=== PATIENT | male | born 1955 | race Caucasian/White ===

== ENCOUNTER 2017-12-23 11:20 | Observation (INO) | payer BC ==
[2017-12-23 12:30] LABS: Absolute Lymphocytes (CBC) 1.1 K/uL (0.7-4.9); Absolute Monocytes 0.7 K/uL (0.1-1.3); Absolute Neutrophil 2.9 K/uL (1.8-8.0); Basophils % 0.9 % (0-1.3); Eosinophils % 3.3 % (0-4.4); Hematocrit 44.5 % (39.6-49.0); MCH 30.1 pg (27.0-35.0); MCV 88.8 fL (80-100); MPV 10.4 fL (7.6-11.3); Monocytes % 14.7 % (3.3-12.3); RBC Red Blood Cell Count 5.01 M/uL (4.33-5.43)
--- NOTE | 2017-12-23 12:33 | RAD REPORT ---
EXAM DESCRIPTION: RAD - Chest Single View - 12/23/2017 12:04 pm CLINICAL HISTORY: Chest pain, sepsis COMPARISON: 04/06/2017 FINDINGS: Portable technique limits examination quality. The lungs are grossly clear. The heart is normal in size. No displaced fractures.Sternotomy wires pre sent. IMPRESSION: No acute intrathoracic process suspected.
--- NOTE | 2017-12-23 12:35 | ER ---
Nurse's Notes [facility] Name: Sajan Guillory Age: 62 yrs Sex: Male : 1955 Arrival Date: 12/23/2017 Time: 11:21 Bed 13 Private MD: Diagnosis: Other chest pain;Essential (primary) hypertension;Hypomagnesemia Presentation: 12/23 11:29 Transition of care: patient was not received from another setting of care. Onset of la1 symptoms was December 23, 2017. Initial Sepsis Screen: Does the patient meet any 2 criteria? No. Patient's initial sepsis screen is negative. Does the patient have a suspected source of infection? No. Patient's initial sepsis screen is negative. Care prior to arrival: None. 11:29 Method Of Arrival: Ambulatory la1 11:30 Presenting complaint: Patient states: I can tell that my BP has been running high for la1 the last few days and I have been having intermittent chest pressure and a weird feeling in my throat as well as numbness and pain in my left arm. 11:30 Acuity: CHRISTOPH 2 la1 Historical: - Allergies: 11:29 No Known Allergies; la1 - PMHx: 11:29 CAD; hemochromatosis; Hypertension; la1 - PSHx: 11:29 CABG; Knee surgery; la1 - Immunization history:: Adult Immunizations up to date. - Social history:: Smoking status: unknown. - Family history:: not pertinent. Screenin:00 Abuse screen: Denies threats or abuse. Denies injuries from another. Nutritional ph screening: No deficits noted. Tuberculosis screening: No symptoms or risk factors identified. Fall Risk None identified. Assessment: 11:45 General: Appears in no apparent distress. comfortable, well groomed, Behavior is calm, ph cooperative, appropriate for age, Denies fever, feeling ill. Pain: Complains of pain in chest Pain radiates to left jaw and left arm Pain began 1 week ago. Neuro: Level of Consciousness is awake, alert, obeys commands, Oriented to person, place, time, situation. Cardiovascular: Reports chest pain, shortness of breath, Denies diaphoresis, nausea, vomiting, Capillary refill < 3 seconds Rhythm is regular. Respiratory: Airway is patent Respiratory effort is even, unlabored, Respiratory pattern is regular, symmetrical. Derm: Skin is intact, is healthy with good turgor, Skin is pink, warm \\T\\ dry. Musculoskeletal: Circulation, motion, and sensation intact. Range of motion: intact in all extremities. 13:00 Reassessment: Patient appears in no apparent distress at this time. Patient and/or ph family updated on plan of care and expected duration. Pain level reassessed. Patient is alert, oriented x 3, equal unlabored respirations, skin warm/dry/pink. Pt denies pain at this time, awaiting lab results, VSS. 14:00 Reassessment: Patient appears in no apparent distress at this time. No changes from ph previously documented assessment. Patient and/or family updated on plan of care and expected duration. Pain level reassessed. Pt c/o "dull" headache, ERP notified, see NOV. 15:05 Reassessment: Patient appears in no apparent distress at this time. Patient and/or ph family updated on plan of care and expected duration. Pain level reassessed. Patient is alert, oriented x 3, equal unlabored respirations, skin warm/dry/pink. 16:10 Reassessment: Patient appears in no apparent distress at this time. Patient and/or ph family updated on plan of care and expected duration. Pain level reassessed. Patient is alert, oriented x 3, equal unlabored respirations, skin warm/dry/pink. Report called to PETE Watts, preparing pt to be taken to 2nd floor. Vital Signs: 11:31 BP 135 / 86; Pulse 88; Resp 16; Temp 98.2(TE); Pulse Ox 97% on R/A; Weight 111.13 kg; la1 Height 6 ft. 0 in. (182.88 cm); 13:00 BP 155 / 68; Pulse 60; Resp 18; Pulse Ox 96% on R/A; ph 14:00 BP 109 / 78; Pulse 66; Resp 18; Pulse Ox 96% ; ph 15:01 BP 134 / 82; Pulse 68; Resp 18; Temp 97.8; Pulse Ox 97% on R/A; ph 16:00 BP 118 / 78; Pulse 64; Resp 18; Temp 97.8; Pulse Ox 96% on R/A; ph 11:31 Body Mass Index 33.23 (111.13 kg, 182.88 cm) la1 ED Course: 11:21 Patient arrived in ED. as 11:29 Arm band placed on left wrist. la1 11:31 Triage completed. la1 11:32 Blake Kumar MD is Attending Physician. sugar 12:00 Patient has correct armband on for positive identification. Bed in low position. Call ph light in reach. Side rails up X 1. monitoring and evaluation advisor on. Pulse ox on. NIBP on. 12:02 X-ray completed. Portable x-ray completed in exam room. Patient tolerated procedure kp1 well. 12:05 XRAY Chest (1 view) In Process Unspecified. EDMS 12:11 Initial lab(s) drawn, by me, sent to lab. EKG done, by ED staff, reviewed by Blake Kumar MD. Inserted saline lock: 20 gauge in right antecubital area, using aseptic technique. Blood collected. 12:34 Billie Fernandez MD is Hospitalizing Provider. [facility] 12:46 Shanthi Negron RN is Primary Nurse. ph 16:00 No provider procedures requiring assistance completed. Patient admitted, IV remains in ph place. Patient maintains SpO2 saturation greater than 95% on room air. Administered Medications: 13:00 Drug: NS 0.9% 1000 ml Route: IV; Rate: 125 ml/hr; Site: right antecubital; ph 13:00 Drug: Aspirin 162 mg Route: PO; ph 14:00 Follow up: Response: No adverse reaction ph 13:05 Drug: Lovenox 1 mg/kg Route: Sub-Q; Site: right lower abdomen; ph 14:00 Follow up: Response: No adverse reaction ph 14:40 Drug: Tylenol 650 mg Route: PO; ph 15:30 Follow up: Response: No adverse reaction; Pain is decreased ph 14:45 Drug: Magnesium Sulfate 1 grams Route: IVPB; Infused Over: 1 hrs; Site: right ph antecubital; 16:00 Follow up: Response: No adverse reaction; IV Status: Completed infusion ph 16:00 Follow up: Response: No adverse reaction; IV Status: Infusion continued upon admission ph 19:34 Not Given (Hemodynamic Parameters): Lopressor (metoprolol TARTRATE) 50 mg PO once ph Outcome: 12:35 Decision to Hospitalize by Provider. sugar 16:10 Admitted to Tele accompanied by tech, via wheelchair, with chart. ph 16:10 Condition: good 16:10 Instructed on the need for admit. 16:23 Patient left the ED. ph Signatures: Dispatcher [employer] EDMS Aron Basilio jb1 Blake Kumar MD MD cha Martinez, Amelia as Attema, Lee, RN RN la1 Shanthi Negron RN RN ph Patti Enamorado kp1 Corrections: (The following items were deleted from the chart) 15:16 15:01 BP 114 / 70; Pulse 72bpm; Resp 18bpm; Pulse Ox 97% RA; Temp 97.8F; ph ph
--- NOTE | 2017-12-23 12:36 | EDPHYS ---
Physician Documentation [facility] Name: Sajan Guillory Age: 62 yrs Sex: Male : 1955 Arrival Date: 12/23/2017 Time: 11:21 Bed 13 Private MD: ED Physician Blake Kumar HPI: 12/23 11:46 This 62 yrs old Male presents to ER via Ambulatory with complaints of Chest sugar Pressure, High Blood Pressure, Arm Pain. 11:46 The patient or guardian reports chest pain that is located primarily in the substernal sugar area, anterior chest wall. Onset: 2 day(s) ago. The pain radiates to the right arm. Associated signs and symptoms: Pertinent positives:. Modifying factors: The symptoms are alleviated by nothing. the symptoms are aggravated by nothing. Severity of pain: At its worst the pain was mild in the emergency department the pain is unchanged. The patient has experienced similar episodes in the past, a few times. Historical: - Allergies: 11:29 No Known Allergies; la1 - PMHx: 11:29 CAD; hemochromatosis; Hypertension; la1 - PSHx: 11:29 CABG; Knee surgery; la1 - Immunization history:: Adult Immunizations up to date. - Social history:: Smoking status: unknown. - Family history:: not pertinent. ROS: 11:46 Constitutional: Negative for fever, chills, and weight loss, Eyes: Negative for injury, sugar pain, redness, and discharge, ENT: Negative for injury, pain, and discharge, Neck: Negative for injury, pain, and swelling, Respiratory: Negative for shortness of breath, cough, wheezing, and pleuritic chest pain, Abdomen/GI: Negative for abdominal pain, nausea, vomiting, diarrhea, and constipation, Back: Negative for injury and pain, : Negative for injury, bleeding, discharge, and swelling, MS/Extremity: Negative for injury and deformity, Skin: Negative for injury, rash, and discoloration, Neuro: Negative for headache, weakness, numbness, tingling, and seizure, Psych: Negative for depression, anxiety, suicide ideation, homicidal ideation, and hallucinations, Allergy/Immunology: Negative for hives, rash, and allergies, Endocrine: Negative for neck swelling, polydipsia, polyuria, polyphagia, and marked weight changes, Hematologic/Lymphatic: Negative for swollen nodes, abnormal bleeding, and unusual bruising. 11:46 Cardiovascular: Positive for chest pain. Exam: 11:46 Constitutional: This is a well developed, well nourished patient who is awake, alert, sugar and in no acute distress. Head/Face: Normocephalic, atraumatic. Eyes: Pupils equal round and reactive to light, extra-ocular motions intact. Lids and lashes normal. Conjunctiva and sclera are non-icteric and not injected. Cornea within normal limits. Periorbital areas with no swelling, redness, or edema. ENT: Nares patent. No nasal discharge, no septal abnormalities noted. Tympanic membranes are normal and external auditory canals are clear. Oropharynx with no redness, swelling, or masses, exudates, or evidence of obstruction, uvula midline. Mucous membranes moist. Neck: Trachea midline, no thyromegaly or masses palpated, and no cervical lymphadenopathy. Supple, full range of motion without nuchal rigidity, or vertebral point tenderness. No Meningismus. Chest/axilla: Normal chest wall appearance and motion. Nontender with no deformity. No lesions are appreciated. Cardiovascular: Regular rate and rhythm with a normal S1 and S2. No gallops, murmurs, or rubs. Normal PMI, no JVD. No pulse deficits. Respiratory: Lungs have equal breath sounds bilaterally, clear to auscultation and percussion. No rales, rhonchi or wheezes noted. No increased work of breathing, no retractions or nasal flaring. Abdomen/GI: Soft, non-tender, with normal bowel sounds. No distension or tympany. No guarding or rebound. No evidence of tenderness throughout. Back: No spinal tenderness. No costovertebral tenderness. Full range of motion. Male : Normal genitalia with no discharge or lesions. Skin: Warm, dry with normal turgor. Normal color with no rashes, no lesions, and no evidence of cellulitis. MS/ Extremity: Pulses equal, no cyanosis. Neurovascular intact. Full, normal range of motion. Neuro: Awake and alert, GCS 15, oriented to person, place, time, and situation. Cranial nerves II-XII grossly intact. Motor strength 5/5 in all extremities. Sensory grossly intact. Cerebellar exam normal. Normal gait. Psych: Awake, alert, with orientation to person, place and time. Behavior, mood, and affect are within normal limits. Vital Signs: 11:31 BP 135 / 86; Pulse 88; Resp 16; Temp 98.2(TE); Pulse Ox 97% on R/A; Weight 111.13 kg; la1 Height 6 ft. 0 in. (182.88 cm); 13:00 BP 155 / 68; Pulse 60; Resp 18; Pulse Ox 96% on R/A; ph 14:00 BP 109 / 78; Pulse 66; Resp 18; Pulse Ox 96% ; ph 15:01 BP 134 / 82; Pulse 68; Resp 18; Temp 97.8; Pulse Ox 97% on R/A; ph 16:00 BP 118 / 78; Pulse 64; Resp 18; Temp 97.8; Pulse Ox 96% on R/A; ph 11:31 Body Mass Index 33.23 (111.13 kg, 182.88 cm) la1 MDM: 11:32 Patient medically screened. [facility] 11:48 Data reviewed: vital signs, nurses notes, lab test result(s), EKG, radiologic studies, sugar plain films. 12/23 11:39 Order name: Basic Metabolic Panel [facility] 12/23 11:39 Order name: BNP [facility] 12/23 11:39 Order name: CBC with Diff [facility] 12/23 11:39 Order name: Ckmb [facility] 12/23 11:39 Order name: CPK [facility] 12/23 11:39 Order name: LFT's; Complete Time: 13:35 [facility] 12/23 11:39 Order name: Magnesium; Complete Time: 13:35 [facility] 12/23 11:39 Order name: PT-INR; Complete Time: 13:35 [facility] 12/23 11:39 Order name: Ptt, Activated; Complete Time: 13:35 [facility] 12/23 11:39 Order name: Troponin (emerg Dept Use Only); Complete Time: 13:35 [facility] 12/23 11:39 Order name: Lipase; Complete Time: 13:35 [facility] 12/23 11:39 Order name: Urine Culture [facility] 12/23 11:39 Order name: Basic Metabolic Panel; Complete Time: 13:35 EDMS 12/23 11:39 Order name: BNP B-Type Natriuretic Peptide; Complete Time: 13:35 EDMS 12/23 11:39 Order name: XRAY Chest (1 view); Complete Time: 12:47 [facility] 12/23 11:39 Order name: EKG; Complete Time: 11:39 [facility] 12/23 11:39 Order name: Cardiac monitoring; Complete Time: 12:13 [facility] 12/23 11:39 Order name: CBC with Automated Diff; Complete Time: 12:47 [facility] 12/23 11:39 Order name: CKMB Creatine Kinase MB; Complete Time: 13:35 [facility] 12/23 11:39 Order name: Creatine Phosphokinase; Complete Time: 13:35 [facility] 12/23 12:40 Order name: CONS Physician Consult [facility] 12/23 15:03 Order name: Urine Dipstick--Ancillary (enter results) 12/23 15:13 Order name: Troponin I [facility] 12/23 15:36 Order name: Urine Dipstick-Ancillary [facility] 12/23 11:39 Order name: EKG - Nurse/Tech; Complete Time: 12:13 [facility] 12/23 11:39 Order name: IV Saline Lock; Complete Time: 12:13 [facility] 12/23 11:39 Order name: Labs collected and sent; Complete Time: 12:13 [facility] 12/23 11:39 Order name: O2 Per Protocol; Complete Time: 12:13 [facility] 12/23 11:39 Order name: O2 Sat Monitoring; Complete Time: 12:14 [facility] Administered Medications: 13:00 Drug: NS 0.9% 1000 ml Route: IV; Rate: 125 ml/hr; Site: right antecubital; ph 13:00 Drug: Aspirin 162 mg Route: PO; ph 14:00 Follow up: Response: No adverse reaction ph 13:05 Drug: Lovenox 1 mg/kg Route: Sub-Q; Site: right lower abdomen; ph 14:00 Follow up: Response: No adverse reaction ph 14:40 Drug: Tylenol 650 mg Route: PO; ph 15:30 Follow up: Response: No adverse reaction; Pain is decreased ph 14:45 Drug: Magnesium Sulfate 1 grams Route: IVPB; Infused Over: 1 hrs; Site: right ph antecubital; 16:00 Follow up: Response: No adverse reaction; IV Status: Completed infusion ph 16:00 Follow up: Response: No adverse reaction; IV Status: Infusion continued upon admission ph 19:34 Not Given (Hemodynamic Parameters): Lopressor (metoprolol TARTRATE) 50 mg PO once ph Disposition: 12/23/17 12:35 Hospitalization ordered by Billie Fernandez for Observation. Preliminary diagnosis are Other chest pain, Essential (primary) hypertension, Hypomagnesemia. - Bed requested for Telemetry/MedSurg (observation). - Status is Observation. ph - Condition is Stable. - Problem is new. - Symptoms have improved. UTI on Admission? No Signatures: Dispatcher [employer] EDMS Blake Kumar MD MD cha Attema, Lee RN RN la1 Shanthi Negron RN RN iLnda Luis
[2017-12-23] MEDS ORDERED: ASPIRIN 81 MG CHEWABLE TABLET ONE (12:52)
[2017-12-23] MEDS ORDERED: METOPROLOL TAR 50 MG TAB ONE (12:52)
[2017-12-23] MEDS ORDERED: ENOXAPARIN 100 MG/ML SYR SQ ONE (12:52)
[2017-12-23] MEDS ORDERED: NA CHLORIDE 0.9% 1,000 ML ONE (12:52)
[2017-12-23 12:58] LABS: Protime INR 1.07
[2017-12-23 13:00] LABS: Potassium 3.6 mEq/L (3.6-5.0)
[2017-12-23 13:06] LABS: Albumin 4.1 g/dL (3.2-5.5); Bilirubin Direct 0.2 mg/dL (0-0.2); Bilirubin Total 1.4 mg/dL (0.3-1.2); Magnesium 1.7 mg/dL (1.8-2.5); Protein, Total 7.4 g/dL (6.0-8.3)
[2017-12-23 13:09] LABS: CKMB Creatine Kinase MB 3.2 ng/ml (0.3-4.0)
[2017-12-23] MEDS ORDERED: MORPHINE 4 MG/ML SYR IV PRN (13:19)
[2017-12-23] MEDS ORDERED: NITROGLYCERIN 0.4 MG/TAB SL PRN (13:19)
[2017-12-23] MEDS ORDERED: ALPRAZOLAM 0.25 MG TABLET PO PRN (13:19)
[2017-12-23] MEDS ORDERED: ACETAMINOPHEN 500 MG TAB PO PRN (13:19)
[2017-12-23] MEDS ORDERED: ACETAMINOPHEN 325 MG TABLET ONE (14:31)
[2017-12-23] MEDS ORDERED: MAGNESIUM SULFATE 1 gm IVPB 1 GM/100 ML BAG IV ONE (14:31)
[2017-12-23] MEDS ORDERED: ENOXAPARIN 40 MG/0.4 ML SQ SCH (15:00)
[2017-12-23 15:36] LABS: Urine Blood NEGATIVE (NEG); Urine Glucose NEGATIVE (NEG); Urine Protein NEGATIVE (NEG)
[2017-12-23] MEDS ORDERED: ATORVASTATIN 20 MG TAB PO SCH (21:00)
[2017-12-23] MEDS: METOPROLOL TAR 50 MG TAB PO SCH (22:06)
[2017-12-23] MEDS: ATORVASTATIN 40 MG TAB PO SCH (22:07)
--- NOTE | 2017-12-24 00:59 | HP ---
Date of Admission: 12/23/2017 Primary Care Physician: The patient is unable to tell me the name of his primary care physician; how ever, sees a local primary doctor. Chief Complaint: Chest pain. History Of Present Illness: The patient is a 62-year-old male with past medical history of coronary artery disease, status post CABG; hypertension; hemochromatosis; who was in his usual state of health until 2 days prior to admission when the patient started having some dull chest tightness, which wou ld radiate to his jaw, neck, and cause some tingling in his lips and neck, and his numbness in his le ft arm. The patient states that his symptoms have been intermittent, becoming more progressive and m oderate intensity. The patient denies any nausea, vomiting, fever, chills, cough, sputum production, or shortness of breath. The patient was admitted to the hospital for further evaluation. In the ER , his initial troponin level was negative. His EKG did not show any acute changes. His chest x-ray was negative. The patient was then referred for admission for chest pain. When seen in the ER, the patient was awake, alert, oriented x3, not in any acute distress. Code status, full. Past Medical History: Hypertension, coronary artery disease, hemochromatosis. Past Surgical History: CABG, 2-vessel disease in 2008; knee replacement on the left. Allergies: NO KNOWN DRUG ALLERGIES. Medications: Reviewed. Social History: The patient smokes 1 pack per day for the past 40 years. Denies drinking any alcoho l. No illicit drug use. Family History: Father also had heart disease. Review of Systems: An 11-point systems reviewed, negative except as per HPI. Physical Examination: Vital Signs: Temperature 98.2, blood pressure 125/86, pulse 88, respirations 16, pulse ox 97% on antonina m air. General: Awake, alert, oriented x3, in some mild distress, elderly obese male. HEENT: Normocephalic, atraumatic. PERRLA. EOMI. Moist mucous membranes. Oropharynx is clear. Po or dentition. Conjunctivae anicteric. Neck: Supple. No JVD. Trachea midline. CV: S1 and S2. Regular rate and rhythm. Peripheral pulses present. No murmurs. Respiratory: Clear to auscultation bilaterally. No wheezing. No stridor. No use of accessory musc les. Gastrointestinal: Abdomen is soft, nontender, nondistended. Positive bowel sounds. No guarding or r igidity. Extremities: No clubbing, cyanosis, or edema. No calf tenderness. Neurologic: Cranial nerves 2 through 12 intact grossly, 5/5 strength in bilateral upper and lower ex tremities. Sensation intact to light touch. Speech is normal. Skin: No rashes. Normal skin turgor. Psychiatric: Mood is okay. Affect is full. Insight and judgment are good. Laboratory Data: Sodium 137, potassium 3.6, chloride 99, CO2 28, BUN 15, creatinine 1.03, glucose 15 4, calcium 9.5, magnesium 1.7. AST 46, ALT 61, alkaline phosphatase 54. Troponin less than 0.03. B HEALTH SPECIALIST 70. Albumin 4.1. Lipase 30. INR 1.07. WBC 4.8, H and H are 15.1 and 44.5, platelets 167. Ches t x-ray shows no acute intrathoracic process identified. Assessment: A 62-year-old male with; 1.Unstable angina. We will continue with chest pain guidelines. Resume home medications. Dr. Troy morrison will be consulted. We will obtain echocardiogram in a.m. 2.Rule out acute coronary syndrome. 3.Obesity. 4.Essential hypertension. Resume home medications as appropriate. 5.Coronary artery disease, status post coronary artery bypass graft, 2-vessel disease. 6.Hemochromatosis. 7.Gastrointestinal and deep venous thrombosis prophylaxis with PPI and Lovenox. Plan: Admit the patient to Med-Surg, [facility] as observation. LEONIDES Voice ID: [id number]
[2017-12-24 05:47] LABS: Absolute Lymphocytes (CBC) 1.4 K/uL (0.7-4.9); Absolute Monocytes 0.9 K/uL (0.1-1.3); Absolute Neutrophil 2.6 K/uL (1.8-8.0); Basophils % 0.9 % (0-1.3); Eosinophils % 5.5 % (0-4.4); Lymphocytes % 26.3 % (15.3-44.8); MCH 30.2 pg (27.0-35.0); MCV 90.3 fL (80-100); MPV 10.9 fL (7.6-11.3); RBC Red Blood Cell Count 4.87 M/uL (4.33-5.43)
[2017-12-24 05:55] LABS: Magnesium 3.3 mg/dL (1.8-2.5); Potassium 4.1 mEq/L (3.6-5.0)
[2017-12-24 06:57] LABS: Blood Morphology Comment NOT SEEN (NOT SEEN); Platelet Estimate ADEQ
--- NOTE | 2017-12-24 07:06 | EKG ---
Test Date: 2017-12-23 Test Time: 11:49:45 Loom Cleaner: [facility] MEASUREMENT RESULTS: Intervals: Rate: 66 MD: 158 QRSD: 116 QT: 422 QTc: 442 [place]: P: 14 MD: 158 QRS: -13 T: 47 INTERPRETIVE STATEMENTS: Normal sinus rhythm Intraventricular conduction delay Borderline ECG Compared to ECG 04/07/2017 00:09:36 Intraventricular conduction delay now present Sinus bradycardia no longer present Electronically Signed On 12-24-17 07:05:44 CDT by Rhett Patel
[2017-12-24] MEDS ORDERED: LISINOPRIL 10 MG TAB PO SCH (09:00)
[2017-12-24] MEDS: ASPIRIN EC 81 MG TAB PO SCH (11:43)
[2017-12-24] MEDS: ENOXAPARIN 40 MG/0.4 ML SQ SCH (11:43)
[2017-12-24] MEDS: LOSARTAN POTASSIUM 50 MG TABLET PO SCH (11:44)
[2017-12-24] MEDS: METOPROLOL TAR 50 MG TAB PO SCH ×2 (11:44→21:12)
--- NOTE | 2017-12-24 12:37 | P.PN ---
Subjective Date of Service: 12/24/17 Chief Complaint: chest pain The patient is feeling well, no chest pain today. Physical Examination - Vital Signs Temperature: 97.8 F Blood Pressure: 128/74 Pulse: 69 Respirations: 16 Pulse Ox (%): 95 - Physical Exam General: Alert, In no apparent distress HEENT: Atraumatic, PERRLA, EOMI Neck: Supple, JVD not distended Respiratory: Clear to auscultation bilaterally, Normal air movement Cardiovascular: Regular rate/rhythm, Normal S1 S2 Gastrointestinal: Normal bowel sounds, No tenderness Musculoskeletal: No tenderness Integumentary: No rashes Neurological: Normal speech, Normal tone, Normal affect - Studies Laboratory Data (last 24 hrs) 12/23/17 12:00: PT 12.6 H, INR 1.07, APTT 31.4 12/23/17 12:00: B-Natriuretic Peptide 70 12/23/17 12:00: Sodium 137, Potassium 3.6, BUN 15, Creatinine 1.03, Glucose 154 H, Magnesium 1.7 L, Total Bilirubin 1.4 H, AST 46 H, ALT 61 H, Alkaline Phosphatase 54, Lipase 30 Assessment And Plan - Current Problems (Diagnosis) (1) CAD (coronary artery disease) Current Visit: Yes Status: Acute (2) Chest pain Onset Date: 12/24/17 Current Visit: Yes Status: Acute (3) HTN (hypertension) Current Visit: Yes Status: Acute Qualifiers: Hypertension type: essential hypertension Qualified Code(s): I10 - Essential (primary) hypertension (4) Hemochromatosis Current Visit: Yes Status: Acute Qualifiers: Hemochromatosis type: unspecified Qualified Code(s): E83.119 - Hemochromatosis, unspecified - Plan #1 CAD: the patient has no chest pain today, trop I is negative x 3, pending ECHO and automotive engineer evaluation. He may go home later today or in the morning if work up is normal. #2 HTN: BP is well controlled, continue losartan and Lopressor.
--- NOTE | 2017-12-24 12:40 | ECHO ---
HEIGHT: 6 ft 0 in WEIGHT: 245 lb 0 oz DATE OF STUDY: 12/24/[address]: Billie Fernandez MD 2-DIMENSIONAL: YES M.MODE: YES DOPPLER: YES COLOR FLOW: YES TDS: NO PORTABLE: NO DEFINITY: NO BUBBLE STUDY: NO DIAGNOSIS: CHEST PAIN, CORONARY ARTERY DISEASE CARDIAC HISTORY: CATHERIZATION: NO SURGERY: NO PROSTHETIC VALVE: NO PACEMAKER: NO MEASUREMENTS (cm) DIASTOLIC (NORMALS) SYSTOLIC (NORMALS) IVSd 1.0 (0.6-1.2) LA Diam 4.5 (1.9-4.0) LVEF 50% LVIDd 5.0 (3.5-5.7) LVIDs 3.7 (2.0-3.5) %FS 25% LVPWd 1.0 (0.6-1.2) Ao Diam 3.0 (2.0-3.7) 2 DIMENSIONAL ASSESSMENT: RIGHT ATRIUM: NORMAL LEFT ATRIUM: DILATED RIGHT VENTRICLE: NORMAL LEFT VENTRICLE: NORMAL TRICUSPID VALVE: NORMAL MITRAL VALVE: NORMAL PULMONIC VALVE: NORMAL AORTIC VALVE: NORMAL PERICARDIAL EFFUSION: NONE AORTIC ROOT: NORMAL LEFT VENTRICULAR WALL MOTION: NORMAL. DOPPLER/COLOR FLOW: PHYSIOLOGIC TRICUSPID REGURGITATION. NORMAL RIGHT VENTRICULAR SYSTOLIC PRESSURE. COMMENTS: NORMAL LEFT VENTRICULAR EJECTION FRACTION. DILATED LEFT ATRIUM. OTHERWISE NORMAL 2D ECHO WITH DOPPLER. TECHNOLOGIST: SAQIB MELGOZA
[2017-12-24] MEDS ORDERED: Morphine 2 MG/2 ML SYR IV PRN (15:21)
--- NOTE | 2017-12-24 16:15 | CON ---
Identification: A 62-year-old man. History Of Present Illness: Mr. Guillory is 62. He has been having chest pain, it feels like angina h yoan has had before in 2007 or . He had a bypass surgery. He was seeing a sampling expert in [place]. S aw me for the first time in September. He was asymptomatic then. He is a tobacco user, has not been successful in quitting yet. He takes losartan, hydrochlorothiazide, and aspirin and we talked about him being on a statin drug, but he is not on a statin drug. I think that is his choice that he does not care to do that. He is a regular tobacco user. Has not been successful in quitting as of yet. He has no allergies. He is not allergic to x-ray contrast material. Since he has been in the hospit sd, cardiac enzymes are normal. Creatinine is 1.03. Blood sugars 110 and 154. His triglycerides ar e 342, total cholesterol 136, and HDL is 23. An echocardiogram is within normal limits and EKG shows no infarction, injury, or ischemia. There is a nonspecific intraventricular conduction delay. No o ther abnormality. Impression: The patient has angina symptoms that are new by definition. It is unstable with normal enzymes and nonspecific EKG. It is also possible this is not related to any cardiac disease. The be st way to figure it out is to do a cardiac cath. We plan to do that tomorrow. We will do it with Dr Wei Khanna. We will look at his old bypass grafts, [place] arteries and be ready to put a stent in if he needs it. Thank you very much for your kind referral of Mr. Guillory. I will follow him with you. SILVIA/HARLEY Voice ID: [id number] Report ID: [id number]
[2017-12-24] MEDS: ATORVASTATIN 40 MG TAB PO SCH (21:11)
[2017-12-25] MEDS: ASPIRIN EC 81 MG TAB PO SCH (09:00)
[2017-12-25] MEDS: ENOXAPARIN 40 MG/0.4 ML SQ SCH (09:00)
[2017-12-25] MEDS: METOPROLOL TAR 50 MG TAB PO SCH (09:00)
[2017-12-25] MEDS: LOSARTAN POTASSIUM 50 MG TABLET PO SCH (09:01)
[2017-12-25] MEDS ORDERED: LIDOCAINE 1% 20 ML MDV ONE (09:54)
[2017-12-25] MEDS ORDERED: HEPA 1000U/500MLS 2,000 UNIT/1,000 ML BAG IV ONE (09:55)
[2017-12-25] MEDS ORDERED: NA CHLORIDE 0.9% 500 ML ONE (10:17)
[2017-12-25] MEDS ORDERED: ATROPINE SULF 1 MG/10 ML SYR IV ONE (10:24)
[2017-12-25] MEDS ORDERED: FENTANYL CITR 100 MCG/2 ML ONE (10:24)
[2017-12-25] MEDS ORDERED: NA CHLORIDE 0.9% 0 ML ONE (10:24)
[2017-12-25] MEDS ORDERED: MIDAZOLAM HCL 2 MG/2 ML INJ ONE ×2 (10:24→10:27)
--- NOTE | 2017-12-25 15:17 | P.DS ---
Admission Date: 12/23/17 Discharge Date: 12/25/17 Disposition: ROUTINE DISCHARGE Discharge Condition: GOOD Reason for Admission: chest pain - Problems (1) CAD (coronary artery disease) Current Visit: Yes Status: Acute Qualifiers: Coronary Disease-Associated Artery/Lesion type: bypass graft, autologous vein Associated angina: with unspecified angina Qualified Code(s): I25.719 - Atherosclerosis of autologous vein coronary artery bypass graft(s) with unspecified angina pectoris (2) Chest pain Onset Date: 12/24/17 Current Visit: Yes Status: Acute Qualifiers: Chest pain type: other chest pain Qualified Code(s): R07.89 - Other chest pain; R07.8 - Other chest pain (3) HTN (hypertension) Current Visit: Yes Status: Acute Qualifiers: Hypertension type: essential hypertension Qualified Code(s): I10 - Essential (primary) hypertension (4) Hemochromatosis Current Visit: Yes Status: Acute Qualifiers: Hemochromatosis type: unspecified Qualified Code(s): E83.119 - Hemochromatosis, unspecified Brief History of Present Illness: By Dr Fernandez The patient is a 62-year-old male with past medical history of coronary artery disease, status post CABG; hypertension; hemochromatosis; who was in his usual state of health until 2 days prior to admission when the patient started having some dull chest tightness, which would radiate to his jaw, neck, and cause some tingling in his lips and neck, and his numbness in his left arm. The patient states that his symptoms have been intermittent, becoming more progressive and moderate intensity. The patient denies any nausea, vomiting, fever, chills, cough, sputum production, or shortness of breath. The patient was admitted to the hospital for further evaluation. In the ER, his initial troponin level was negative. His EKG did not show any acute changes. His chest x-ray was negative. The patient was then referred for admission for chest pain. When seen in the ER, the patient was awake, alert, oriented x3, not in any acute distress Hospital Course: During his stay in the hospital, troponin I were negative x 3. He did not repeat chest pain. Due to his CAD history, Dr Khanna today performed a heart cath. Preliminary report inform, no significative lesions found. ECHO shows normal LV function EF 50%. He is clinically stble to be discharged home. F/U with PCP and Dr Khanna in 1-2 weeks. Vital Signs/Physical Exam: Temp Pulse Resp BP Pulse Ox 97.6 F 51 17 100/67 95 12/25/17 12:00 12/25/17 12:00 12/25/17 12:00 12/25/17 12:00 12/25/17 12:00 General: Alert, In no apparent distress HEENT: Atraumatic, PERRLA, EOMI Neck: Supple, JVD not distended Respiratory: Clear to auscultation bilaterally, Normal air movement Cardiovascular: Regular rate/rhythm, Normal S1 S2 Gastrointestinal: Normal bowel sounds, No tenderness Musculoskeletal: No tenderness Integumentary: No rashes Neurological: Normal speech, Normal tone, Normal affect Lymphatics: No axilla or inguinal lymphadenopathy Laboratory Data at Discharge: WBC 5.2 K/uL (4.3-10.9) 12/24/17 04:43 Hgb 14.7 g/dL (13.6-17.9) 12/24/17 04:43 Hct 44.0 % (39.6-49.0) 12/24/17 04:43 Plt Count 168 K/uL (152-406) 12/24/17 04:43 PT 12.6 SECONDS (9.5-12.5) H 12/23/17 12:00 INR 1.07 12/23/17 12:00 APTT 31.4 SECONDS (24.3-36.9) 12/23/17 12:00 Sodium 141 mEq/L (135-145) 12/24/17 04:43 Potassium 4.1 mEq/L (3.6-5.0) 12/24/17 04:43 BUN 15 mg/dL (6-20) 12/24/17 04:43 Creatinine 1.12 mg/dL (0.61-1.24) 12/24/17 04:43 Glucose 110 mg/dL (65-120) 12/24/17 04:43 Magnesium 3.3 mg/dL (1.8-2.5) H D 12/24/17 04:43 Total Bilirubin 1.4 mg/dL (0.3-1.2) H 12/23/17 12:00 AST 46 IU/L (10-42) H 12/23/17 12:00 ALT 61 IU/L (10-60) H 12/23/17 12:00 Alkaline Phosphatase 54 IU/L (42-121) 12/23/17 12:00 Troponin I < 0.03 ng/mL (<0.03) 12/23/17 21:01 B-Natriuretic Peptide 70 pg/ml (<=100) 12/23/17 12:00 Triglycerides 342 mg/dL (35-160) H 12/24/17 04:43 Cholesterol 136 mg/dL (<200) 12/24/17 04:43 HDL Cholesterol 23 mg/dL (27-67) L 12/24/17 04:43 Cholesterol/HDL Ratio 5.91 12/24/17 04:43 Lipase 30 U/L (22-51) 12/23/17 12:00 Home Medications: Aspirin [Aspirin EC 81 MG] 81 mg PO DAILY 12/23/17 Losartan/Hydrochlorothiazide [Losartan-Hctz 100-12.5 mg Tab] 1 each PO DAILY Diet: Low sodium Activity: Ad vish Followup: Marquis Khanna MD [ACTIVE - CAN ADMIT] - 1-2 Weeks Time spent managing pt's care (in minutes): 35
--- NOTE | 2017-12-25 22:25 | OP ---
Date of Procedure: 12/25/2017 Surgeon: Marquis Khanna MD Mine Engineer: Syeda Smart. Admitted to Dr. Fernandez on 12/23/2017. The patient brought to the cleaner laboratory equipment on 12/25/2017, because of c oronary artery disease, unstable angina. He was brought in as an inpatient. The procedure that was performed include left heart catheterization, selective coronary arteries, selective graft injection, and a FREY injection. The patient had a normal RCA that was dominant, normal circumflex. He had 10 0% proximal LAD, vein graft to the first diagonal, and one of its branches that were patent. FREY to the LAD was patent. He was right dominant. A 6-Azeri sheath and catheters were used. An Angio-Se al was used to close the right common femoral artery. There were no complications. Estimated Blood Loss: 5 cc. Postoperative Diagnosis: Severe coronary artery disease. Plan: Plan is for medical therapy. Total Conscious Sedation: 30 minutes. General Internist: Myself. DIMAS/HARLEY Voice ID: [id number] Report ID: [id number]
== END 2017-12-25 16:00 | disposition home or self-care (01) ==
LOC: ER 11:20 → ERHOLD 12:36 → 2ND 15:46
PROVIDERS: ADMIT Family Medicine; ATTEND Family Medicine
PROC: 4A023N7 Measurement of Cardiac Sampling and Pressure, Left Heart, Percutaneous Approach (ICD-10-PCS; principal; 2017-12-25)
PROC: B202YZZ Plain Radiography of Single Coronary Artery Bypass Graft using Other Contrast (ICD-10-PCS; 2017-12-25)
PROC: B201YZZ Plain Radiography of Multiple Coronary Arteries using Other Contrast (ICD-10-PCS; 2017-12-25)
PROC: B208YZZ Plain Radiography of Left Internal Mammary Bypass Graft using Other Contrast (ICD-10-PCS; 2017-12-25)
PROC: B205YZZ Plain Radiography of Left Heart using Other Contrast (ICD-10-PCS; 2017-12-25)
DX: I25.119 Atherosclerotic heart disease of native coronary artery with unspecified angina pectoris (principal); I10 Essential (primary) hypertension; Z95.1 Presence of aortocoronary bypass graft; E83.119 Hemochromatosis, unspecified; F17.210 Nicotine dependence, cigarettes, uncomplicated; Z96.652 Presence of left artificial knee joint
CPT/HCPCS: 36415; 71045; 80048; 80061; 80076; 81003; 82550; 82553; 83690; 83735; 83880; 84484; 85025; 85610; 85730; 87086; 87088; 93005; 93306; 93455; 94760; 96365; 96372; 99285; C1760; C1893; G0378; J0583; J1650; J2250; J3010; J3475; J7030